=== PATIENT | male | born 1995 | race African-American/Black ===

== ENCOUNTER 2018-04-22 06:20 | Day surgery (SDC) | payer BC ==
[2018-04-20 10:12] VITALS: BMI 38.7
[2018-04-22] MEDS ORDERED: LIDOCAINE HCL/PF 2% SDV 5ML VIAL ONE (07:46)
[2018-04-22] MEDS ORDERED: SUCCINYLCHOLINE CHLORIDE 200 MG/10 ML VIAL ONE (07:47)
[2018-04-22] MEDS ORDERED: PROPOFOL 20 ML ONE ×2 (07:47)
[2018-04-22] MEDS ORDERED: MIDAZOLAM HCL 2 MG/2 ML SINGLE DOSE VIAL ONE (07:47)
[2018-04-22] MEDS ORDERED: ROCURONIUM BROMIDE 50 MG/5 ML VIAL ONE (07:59)
[2018-04-22] MEDS ORDERED: GLYCOPYRROLATE 0.2 MG/1 ML VIAL ONE (08:19)
[2018-04-22] MEDS ORDERED: NEOSTIGMINE METHYLSULFATE 0.5 MG/ML - 10 ML MDV ONE (08:19)
--- NOTE | 2018-04-22 08:48 | OP ---
Operative Note - Note: Operative Date: 04/22/18 Pre-Operative Diagnosis: chronic adenoiditis Operation: adenoidectomy Findings: large adenoids Post-Operative Diagnosis: Same as Pre-op Surgeon: Lopez Bush Anesthesiologist/ROAD ENGINEER FREIGHT: Vera Olmos Anesthesia: General Specimens Removed: no specimen Estimated Blood Loss (mls): 2
[2018-04-22] MEDS ORDERED: oxyCODONE HCL 5 MG TABLET PO PRN (08:54)
[2018-04-22] MEDS ORDERED: ONDANSETRON 4 MG/2 ML VIAL IVPUSH PRN (08:54)
[2018-04-22] MEDS ORDERED: LACTATED RINGERS SOLUTION 1,000 ML IV SCH (09:00)
--- NOTE | 2018-04-22 09:09 | OP ---
DATE OF OPERATION: 04/22/2018 PREOPERATIVE DIAGNOSIS: Chronic adenoiditis. POSTOPERATIVE DIAGNOSIS: Chronic adenoiditis. PROCEDURE: Adenoidectomy. SURGEON: Lopez Bush MD ANESTHESIA: General endotracheal by Vera Olmos MD INDICATIONS: The patient is a 22-year-old man with chronic adenoiditis as manifested by slightly stuffy nose, enlarged adenoids, and exudate refractory to medical management, who requests surgery. The nature and purpose of the proposed procedure as well as the risks, benefits, alternatives, and possible complications were discussed in detail with the patient, who appears to understand and wishes to proceed with surgery. All questions were answered, and an informed consent was given by the patient. PROCEDURE DESCRIPTION: with the patient under general endotracheal anesthesia in the supine position, he was prepped and draped in the usual sterile fashion. The mouth was opened with a mouth gag, keeping the tongue and endotracheal tube in the midline position. The mouth gag was suspended on chest towels. Red rubber catheters were passed through the nose and out the mouth to suspend the soft palate. Under mirror guidance, the adenoids were inspected and noted to be enlarged. Using an [employer]thro[employer] Coblation Procise Max wand, the adenoids were removed on its default settings of 7 and 3. Hemostasis was achieved with the same instrument. Once the adenoids had been resected and there was no further bleeding noted, the procedure was terminated. The catheters were removed along with the mouth gag, and when the patient awakened he was extubated and discharged to recovery room in satisfactory condition. The estimated blood loss was 2 mL. There were no complications. LOPEZ BUSH M.D. /[id number]
[2018-04-22 10:19] VITALS: TEMP 97.4
[2018-04-22 11:30] VITALS: BP 144/77; PULSE 83
== END 2018-04-22 10:55 | disposition home or self-care (01) ==
LOC: JASU-SURG 06:20
PROVIDERS: ATTEND Otolaryngology
PROC: 0CTQ0ZZ Resection of Adenoids, Open Approach (ICD-10-PCS; principal; 2018-04-22 07:30)
DX: J35.02 Chronic adenoiditis (principal)
CPT/HCPCS: 94760